=== PATIENT | female | born 1955 | race Caucasian/White ===

== ENCOUNTER 2017-03-16 20:16 | Emergency (ER) | payer MEDICAID ==
[~2017-03-16] VITALS: Ht 157.5 cm; Wt 75.0 kg
[2017-03-17 03:19] VITALS: BP 141/68
== END 2017-03-17 03:19 | disposition home or self-care (01) ==
LOC: ER 20:16
DX: L03.116 Cellulitis of left lower limb (principal); Z86.718 Personal history of other venous thrombosis and embolism
CPT/HCPCS: 99283